=== PATIENT | female | born 1960 | race Caucasian/White ===

== ENCOUNTER 2020-10-03 08:50 | Outpatient (CLI) | payer SELFPAY ==
--- NOTE | 2020-10-03 08:55 | MR_ITS ---
WS: [id number] MRI BRAIN WITHOUT CONTRAST HISTORY: Tremor; anesthesia OF Skin; extrapyramidal AND MOVEMENT DISORDER COMPARISON: 04/14/2014 TECHNIQUE: Diffusion imaging, multiplanar T1, T2 and FLAIR imaging obtained. No evidence for acute infarct or hemorrhage. Greco-white matter differentiation is normal. No prior infarcts. There are several periventricular and deep white matter signal abnormalities which are similar to the prior study from 2013. The white matter lesion adjacent to the occipital horn of the RIGHT lateral ventricle is very minimally larger in size. Ventricles and extra-axial spaces are normal. No inferior displacement of cerebellar tonsils. The sella turcica and pituitary gland are unremarkabl e. Posterior fossa is also unremarkable. Dural venous sinuses and [place] of [place] demonstrate no abnormality on this unenhanced studies. Paranasal sinuses: Clear. Mastoid air cells: Normal. Calvarium and scalp: Intact. MR/MR head wo con* [id number] IMPRESSION: 1. No acute infarct. 2. Minimal chronic white matter changes surrounding the ventricles is very sim ilar in appearance to the prior study from 2013 without significant progression . 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 Not typical for demyelination .
== END 2020-10-03 08:51 | disposition home or self-care (01) ==
PROVIDERS: PCP Nurse Practitioner Family; Visit Provider Nurse Practitioner Family
DX: R20.0 Anesthesia of skin (principal); G25.9 Extrapyramidal and movement disorder, unspecified
CPT/HCPCS: 70551

== ENCOUNTER 2021-09-11 07:24 | Outpatient (RCR) | payer OTHER, SELFPAY | END 2021-10-08 23:59 | disposition home or self-care (01) | LOC: SPT 07:24 | PROVIDERS: PCP Nurse Practitioner Family; Visit Provider Nurse Practitioner Family | DX: S16.1XXA Strain of muscle, fascia and tendon at neck level, initial encounter (principal); V89.2XXA Person injured in unspecified motor-vehicle accident, traffic, initial encounter | CPT/HCPCS: 97110; 97161 ==

== ENCOUNTER 2021-10-25 10:41 | Outpatient (RCR) | payer OTHER, SELFPAY | END 2021-11-08 23:59 | disposition home or self-care (01) | LOC: SPT 10:41 | PROVIDERS: PCP Nurse Practitioner Family; Visit Provider Nurse Practitioner Family | DX: S16.1XXA Strain of muscle, fascia and tendon at neck level, initial encounter (principal); X58.XXXA Exposure to other specified factors, initial encounter; V89.2XXA Person injured in unspecified motor-vehicle accident, traffic, initial encounter | CPT/HCPCS: 97110 ==

== ENCOUNTER → 2021-11-29 00:01 | Outpatient (BNVA) | payer MEDICAID, SELFPAY | PROVIDERS: PCP Nurse Practitioner Family; Visit Provider Nurse Practitioner Family | DX: Z20.822 Contact with and (suspected) exposure to COVID-19 (principal) | CPT/HCPCS: 87635 ==

== ENCOUNTER 2022-10-07 15:29 | Emergency (ER) | payer MEDICAID, SELFPAY ==
[2022-10-07 15:44] VITALS: BP 136/88; PULSE 77; RESP 16; TEMP 37; O2SAT 98; BMI 33.2
--- NOTE | 2022-10-07 15:52 | ECG_ITS ---
[facility] Test Date: 2022-10-07 Pat Name: Beena Curtis Department: Room: Gender: Female [facility] Center Nurse: : 1960 Requested By: Jack Dorantes Order Number: [id number] Padma MD: Paulette Navas M.D. Measurements Intervals [place] Rate: 80 P: 54 [place]: 135 QRS: 18 QRSD: 79 T: 58 QT: 371 QTc: 430 Interpretive Statements SINUS RHYTHM Compared to ECG 09/25/2015 22:21:17 Ventricular premature complex(es) no longer present Electronically Signed On 10-07-2022 18:06:34 C D AREA SUPERVISOR by Paulette Navas M.D. [id number]
== END 2022-10-07 17:26 | disposition home or self-care (01) ==
PROVIDERS: Emergency Provider Family Medicine; PCP Nurse Practitioner Family
DX: Z53.21 Procedure and treatment not carried out due to patient leaving prior to being seen by health care provider (principal); R07.9 Chest pain, unspecified
CPT/HCPCS: 93005

== ENCOUNTER 2022-11-15 22:11 | Emergency (ER) | payer MEDICAID, SELFPAY ==
[2022-11-15 22:14] VITALS: BP 191/101; PULSE 94; RESP 22; TEMP 37.3; O2SAT 99; BMI 33.2
--- NOTE | 2022-11-15 22:30 | XRR_ITS ---
PROCEDURE INFORMATION: Exam: XR Chest Exam date and time: 11/15/2022 10:58 PM Age: 62 years old Clinical indication: Pain; Chest pressure; Additional info: Anxiety, chest pain TECHNIQUE: Imaging protocol: Radiologic exam of the chest. Views: 1 view. COMPARISON: No relevant prior studies available. FINDINGS: Lungs: Unremarkable. No consolidation. Pleural spaces: Unremarkable. No pleural effusion. No pneumothorax. Heart/Mediastinum: Unremarkable. No cardiomegaly. Bones/joints: Unremarkable. XR/XR chest 1V portable [id number] IMPRESSION: No acute findings.
--- NOTE | 2022-11-15 22:42 | W.ED.ANXIETY ---
HPI - Anxiety General: Chief Complaint: Anxiety Stated Complaint: anxiety, shaking Time Seen by Provider: 11/15/22 22:21 [facility] ED PFSH: Social History (Updated 11/29/21 @ 09:32 by Archana Leung NP) Smoking and tobacco status: former smoker Course Vital Signs: Vital signs: Vital Signs Temperature 99.2 F 11/15/22 22:14 Pulse Rate 94 11/15/22 22:14 Respiratory Rate 22 H 11/15/22 22:14 Blood Pressure 191/101 11/15/22 22:14 Pulse Oximetry 99 11/15/22 22:14 Oxygen Delivery Me thod 11/15/22 22:14 Discharge Plan Discharge Condition: Stable Prescriptions: No Action Unable to Assess Referrals: Ravinder,LEDY Davis [Primary Care Provider] - Coding Level of Care Code ED Janitorial Manager for Gurpreet Watkins
--- NOTE | 2022-11-15 22:43 | ECG_ITS ---
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 Measurements Intervals [place] Rate: 86 P: 56 [place]: 133 QRS: 32 QRSD: 89 T: 69 QT: 363 QTc: 436 Interpretive Statements SINUS RHYTHM Compared to ECG 10/07/2022 15:54:09 No significant changes Electronically Signed On 11-16-2022 20:01:44 PLACEMENT ASSISTANT by Nicole Moya M.D. [email or web address] memorial hospitalResonant Vibesguernsey memorial hospitalAkebia Therapeutics/store/OM/[id number]
[2022-11-15] MEDS: hyDROXYzine 25 mg Capsule 50 MG PO (23:02)
[2022-11-15 23:06] LABS: Basophils # 0.1 10^3/uL (0.0-0.1); Basophils % 1.1 %; Eosinophils # 0.2 10^3/uL (0.0-0.8); Eosinophils % 2.4 %; Hematocrit 45.3 % (37.0-47.0); Lymphocytes # 3.1 10^3/uL (0.8-4.8); Lymphocytes % 32.6 %; Mean Corpuscular HGB Conc 33.1 g/dL (30.0-36.0); Mean Corpuscular Hemoglobin 29.2 pg (28.0-34.0); Mean Corpuscular Volume 88.3 fl (81-99); Mean Platelet Volume 8.9 fL (7.4-10.4); Monocytes # 0.8 10^3/uL (0.2-0.9); Monocytes % 8.9 %; Neutrophils # 5.16 10^3/uL (1.8-7.7); Neutrophils % 54.8 %; Nucleated Red Blood Cells % 0 %; Platelet Count 346 10^3/cmm (130-400); Red Blood Count 5.13 10^6/uL (4.1-5.3); Red Cell Distribution Width 12.3 % (12.1-15.1); White Blood Count 9.4 10^3/uL (4.0-10.0)
--- NOTE | 2022-11-15 23:12 | ED_ITS ---
Documented by User: LEON Brody 11/16/22 01:20 HPI - General Adult General: Chief complaint: Anxiety Stated complaint: anxiety, shaking Time Seen by Provider: 11/15/22 22:21 History of Present Illness: Patient is a 62-year-old female that presents to the emergency department with complaints of anxiety, chest tightness, shortness of breath. Onset of symptoms yesterday after she underwent a stress test. She reports she got very anxious because she was not given the results of the stress test. Patient has been doing well at home until tonight. She became anxious and took 1/4 tablet of Xanax. Patient states her normal dose is half a tablet. Patient is in no acute distress and appears calm at this time Associated symptoms: Deny chest pain, confusion, dyspnea, headache(s), malaise, nausea, rash, palpitations or vomiting Review of Systems General: Reports: 10 or more systems reviewed and unremarkable except in HPI and below Const: Denies: fever(s), chills, change in appetite, change in weight, fatigue or malaise Eyes: Denies: change in vision, eye discomfort, eye discharge or eye redness ENMT: Denies: throat pain, enlarged tonsils, odynophagia, hoarseness, ear or mastoid pain, ear discharge, change in hearing, tinnitus, nasal discharge, nasal congestion, post nasal drip or sinus pain Card: Denies: chest pain, palpitations, irregular heart rhythm, edema, dyspnea on exertion, orthopnea or leg pain with exertion Resp: Denies: dyspnea, productive cough, non-productive cough, wheezing, stridor or chest congestion GI: Denies: abdominal pain, nausea, vomiting, dysphagia, diarrhea, constipation, bloating, GI cramping or hematochezia : Denies: flank pain, difficulty voiding, dysuria, urinary frequency, urinary urgency, urinary hesitancy, oliguria or hematuria Musc: Denies: neck pain, back pain, extremity pain, joint pain, joint swelling, joint redness, joint warmth or muscle weakness Skin/Breast: Denies: rash, pruritus, erythema, photosensitivity or new lesions Neuro: Denies: headache(s), numbness in extremities, weakness in extremities, sensory changes, lack of coordination, difficulty walking, frequent falls, dizziness, confusion, Slurred speech present, difficulty communicating thoughts, seizure-like activity or involuntary movements Endo: Denies: polyuria, polydipsia or tired all the time Jacoby/Lymph: Denies: easy bruising or easy bleeding PFSH ED PFSH: Social History (Updated 11/29/21 @ 09:32 by Archana Lenug NP) Smoking and tobacco status: former smoker Physical Exam Const: COMMON NORMALS: no acute distress, average body habitus, patient oriented x3, no limitations, healthy appearing, alert and well nourished GENERAL APPEARANCE: cooperative, comfortable and well developed; not in distress and not anxious HENMT: COMMON NORMALS: normocephalic, atraumatic, hearing grossly normal bilaterally, external ears normal, EAC's normal, TM's normal bilaterally, Normal external nose present and Normal nasal mucous membranes and turbinates present HEAD & SCALP: normal to inspection, normocephalic and atraumatic FACE & SINUS: normal facial exam and face symmetric NOSE: Normal external nose present, Normal nares present and Normal nasal mucous membranes and turbinates present GENERAL EAR: hearing not grossly impaired EXTERNAL EAR: Yes external ears normal and Yes no periauricular adenopathy EXTERNAL AUDITORY CANAL: EAC's normal TYMPANIC MEMBRANE: TM's normal bilaterally MOUTH: Normal oral and palatal mucosa present, lip normal, tongue normal and Normal salivary glands and ducts present THROAT: posterior oropharynx normal, tonsils normal and uvula midline Eye: COMMON NORMALS: Equal, round and reactive pupils present, EOMs intact bilaterally, conjunctivae normal, no scleral icterus and no papilledema GENERAL EYE: appearance normal, both eyes and all related structures ALIGNMENT: Yes alignment normal PERIORBITAL: periorbital findings normal EYELID: eyelids normal CONJUNCTIVA: Yes conjunctivae normal PUPIL: Yes Equal, round and reactive pupils present DIRECT OPHTHALMOSCOPY: Yes no papilledema Neck/C-Spine: COMMON NORMALS: full ROM, supple, no meningeal signs and no JVD GENERAL: Yes normal visual inspection CERVICAL SPINE: Yes cervical ROM normal Lymph: LYMPHATIC: no lymphadenopathy noted Chest: COMMONS NORMALS: normal inspection of the chest Breast/axilla inspection: Yes no chest deformity, asymmetry, normal contours, no nodules, masses, tenderness Resp: COMMON NORMALS: normal respiratory effort, No retractions, No use of accessory muscles and clear to auscultation bilaterally EFFORT & INSPECTION: Yes able to speak in complete sentences, Yes symmetric chest movement, No abn ormal respiratory pattern, No tachypneic and No respiratory distress AUSCULTATION: clear to auscultation bilaterally Cardio: COMMON NORMALS: no JVD, regular rate, regular rhythm and Peripheral pulses 2+ throughout RATE: regular rate RHYTHM: regular rhythm PERIPHERAL PULSES: Peripheral pulses 2+ throughout GI: COMMON NORMALS: Normal to inspection, nondistended, normoactive bowel mary nds present, Soft to palpation and non-tender INSPECTION: Yes normal to i nspection PALPATION: Yes Soft to palpation Extremity: COMMON NORMALS: normal to inspection, full ROM and capillary refill normal GENERAL: Yes normal exam except as noted Neuro: COMMON NORMALS: patient oriented x3 SENSORIUM/ORIENTATION: Yes alert MENINGEAL SIGNS: Yes no meningeal signs Psych: COMMON NORMALS: mental status grossly normal, Normal thought process present, cooperative, normal affect, speech normal and activity/motor behavior normal SPEECH: Yes normal speech THOUGHT PROCESS: Normal thought process present Course Vital Signs: Vital signs: Vital Signs Temperature 99.2 F 11/15/22 22:14 Pulse Rate 94 11/15/22 22:14 Respiratory Rate 22 H 11/15/22 22:14 Blood Pressure 191/101 11/15/22 22:14 Pulse Oximetry 99 11/15/22 22:14 Oxygen Delivery Me thod 11/15/22 22:14 MDM - General Adult Medical Decision Making Patient is a 62-year-old female that presents with anxiety. Differential diagnoses include anxiety, depression, cardiac event, respiratory event Here in the emergency department we discussed her symptoms and her current management at home. Patient's anxiety is managed by primary care but patient is not taking medications as prescribed Patient denies any actual chest pain but does report several episodes of discomfort. She is not acutely short of breath but she describes heaviness in her breathing. Here in the emergency department she is undergone med for anxiety which include Vistaril; she did not want to take the Librium that I prescribed Patient also underwent EKG, chest x-ray, laboratory studies. Chest x-ray was unremarkable, EKG was completed at 2243. It reveals sinus rhythm with a ventricular rate of 86 beats a minute. QTc is 407. CBC and CMP were unremarkable. Troponin was 6. Patient did respond positively with the Vistaril. I will discharge her home with several days worth to help with anxiety. She is to contact her primary care provider to discuss her anxiety and her anxiolytics. Patient also needs to follow-up with the retail greeter at [facility] to further discuss stress test. At this time I think the patient is safe to discharge home. She is to return to the emergency department for new concerning or worsening symptoms. Questions sought and answered and she is agreeable with this plan Lab Data 11/15/22 23:00 11/15/22 23:00 Radiology Impressions Chest X-Ray 11/15/22 22:30 IMPRESSION: No acute findings. Laboratory Results WBC 9.4 10^3/uL (4.0-10.0) 11/15/22 23: RBC 5.13 10^6/uL (4.1-5.3) 11/15/22 23: Hgb 15.0 g/dL (11.5-15.3) 11/15/22 23: Hct 45.3 % (37.0-47.0) 11/15/22 23: MCV 88.3 fl (81-99) 11/15/22 23: MCH 29.2 pg (28.0-34.0) 11/15/22 23: MCHC 33.1 g/dL (30.0-36.0) 11/15/22 23: RDW 12.3 % (12.1-15.1) 11/15/22 23: Plt Count 346 10^3/cmm (130-400) 11/15/22 23: MPV 8.9 fL (7.4-10.4) 11/15/22 23: Neut % (Auto) 54.8 % 11/15/22 23: Lymph % (Auto) 32.6 % 11/15/22 23: [place] % (Auto) 8.9 % 11/15/22 23: Eos % (Auto) 2.4 % 11/15/22 23: Baso % (Auto) 1.1 % 11/15/22 23: Neut # (Auto) 5.16 10^3/uL (1.8-7.7) 11/15/22 23: Lymph # (Auto) 3.1 10^3/uL (0.8-4.8) 11/15/22 23:00 [place] # (Auto) 0.8 10^3/uL (0.2-0.9) 11/15/22 23:00 Eos # (Auto) 0.2 10^3/uL (0.0-0.8) 11/15/22 23:00 Baso # (Auto) 0.1 10^3/uL (0.0-0.1) 11/15/22 23:00 Nucleated RBC % (auto) 0 % 11/15/22 23:00 Nucleated RBCs # 0.0 /100WBC 11/15/22 23:00 Sodium 141 mmol/L (136-145) 11/15/22 23:00 Potassium 3.7 mmol/L (3.5-5.1) 11/15/22 23:00 Chloride 102 mmol/L (98-107) 11/15/22 23:00 Carbon Dioxide 26 mmol/L (22-29) 11/15/22 23:00 Anion Gap 16.7 (5-19) 11/15/22 23:00 BUN 16 mg/dL (8-23) 11/15/22 23:00 Creatinine 0.8 mg/dL (0.5-0.9) 11/15/22 23:00 GFR Calculation 72.9 mL/min (90-130) L 11/15/22 23:00 Glucose 139 mg/dL (65-115) H 11/15/22 23:00 Calculated Osmolality 295 mOsm/kg (285-295) 11/15/22 23:00 Calcium 9.3 mg/dL (8.5-10.5) 11/15/22 23:00 Total Bilirubin 0.4 mg/dL (0.15-1.2) 11/15/22 23:00 AST 14 U/L (0-32) 11/15/22 23:00 ALT 16 U/L (0-33) 11/15/22 23:00 Alkaline Phosphatase 67 U/L (35-105) 11/15/22 23:00 Troponin T Baseline 6 ng/L (0-10) 11/15/22 23:00 Total Protein 7.7 g/dL (6.6-8.7) 11/15/22 23:00 Albumin 4.6 g/dL (3.5-5.2) 11/15/22 23:00 Globulin 3.1 g/dL (1.3-4.6) 11/15/22 23:00 Discharge Plan Discharge Patient Disposition: Home Clinical Impression: Acute anxiety Condition: Stable Prescriptions: New hydroxyzine HCl 50 mg tablet 50 mg PO BID PRN (Reason: anxiety) Qty: 10 0RF Discharge Orders: Discharge ED (Routine); Ordered 11/16/22 Ordered By: Antonietta Tracy Referrals: Susan Castellon FNP [Primary Care Provider] - Discharge Diet: Advance as tolerated Discharge Activity: Resume usual activity Patient Instructions: Relaxation and Meditation (ED), Anxiety (ED) Activity Restrictions/Additional Instructions: I have provided you hydroxyzine 50 mg tablets. You can take 1/2 to 1 tablet twice a day as needed for anxiety. Find ways of reducing your stress and anxiety. Trial meditation or anxiety Focus on your breathing Contact your cardiology team at [facility] to discuss stress test findings Contact your primary care team to discuss your anxiety medications Return to the emergency department for new, concerning, worsening symptoms Coding Level of Care Code ED Credit Control Administrator for Chg Fwd Exam Comprehensive Documented by User: Uriel Krishnamurthy DO 11/16/22 07:07 HPI - General Adult General: Chief complaint: Anxiety Stated complaint: anxiety, shaking Time Seen by Provider: 11/15/22 22:21 [facility] ED PFS: Social History (Updated 11/29/21 @ 09:32 by Archana Leung NP) Smoking and tobacco status: former smoker Course Vital Signs: Vital signs: Vital Signs Temperature 99.2 F 11/15/22 22:14 Pulse Rate 94 11/15/22 22:14 Respiratory Rate 22 H 11/15/22 22:14 Blood Pressure 191/101 11/15/22 22:14 Pulse Oximetry 99 11/15/22 22:14 Oxygen Delivery Me thod 11/15/22 22:14 MDM - General Adult Medical Decision Making Patient is a 62-year-old female that presents with anxiety. Differential diagnoses include anxiety, depression, cardiac event, respiratory event Here in the emergency department we discussed her symptoms and her current management at home. Patient's anxiety is managed by primary care but patient is not taking medications as prescribed Patient denies any actual chest pain but does report several episodes of discomfort. She is not acutely short of breath but she describes heaviness in her breathing. Here in the emergency department she is undergone med for anxiety which include Vistaril; she did not want to take the Librium that I prescribed Patient also underwent EKG, chest x-ray, laboratory studies. Chest x-ray was unremarkable, EKG was completed at 2243. It reveals sinus rhythm with a ventricular rate of 86 beats a minute. QTc is 407. CBC and CMP were unremarkable. Troponin was 6. Patient did respond positively with the Vistaril. I will discharge her home with several days worth to help with anxiety. She is to contact her primary care provider to discuss her anxiety and her anxiolytics. Patient also needs to follow-up with the retail greeter at [facility] to further discuss stress test. At this time I think the patient is safe to discharge home. She is to return to the emergency department for new concerning or worsening symptoms. Questions sought and answered and she is agreeable with this plan Chart reviewed and patient discussed with midlevel. Agree with assessment and plan. Lab Data 11/15/22 23:00 11/15/22 23:00 Radiology Impressions Chest X-Ray 11/15/22 22:30 IMPRESSION: No acute findings. Laboratory Results WBC 9.4 10^3/uL (4.0-10.0) 11/15/22 23: RBC 5.13 10^6/uL (4.1-5.3) 11/15/22 23:00 Hgb 15.0 g/dL (11.5-15.3) 11/15/22 23: Hct 45.3 % (37.0-47.0) 11/15/22 23:00 MCV 88.3 fl (81-99) 11/15/22 23: MCH 29.2 pg (28.0-34.0) 11/15/22 23: MCHC 33.1 g/dL (30.0-36.0) 11/15/22 23: RDW 12.3 % (12.1-15.1) 11/15/22 23:00 Plt Count 346 10^3/cmm (130-400) 11/15/22 23:00 MPV 8.9 fL (7.4-10.4) 11/15/22 23:00 Neut % (Auto) 54.8 % 11/15/22 23:00 Lymph % (Auto) 32.6 % 11/15/22 23:00 [place] % (Auto) 8.9 % 11/15/22 23:00 Eos % (Auto) 2.4 % 11/15/22 23:00 Baso % (Auto) 1.1 % 11/15/22 23:00 Neut # (Auto) 5.16 10^3/uL (1.8-7.7) 11/15/22 23:00 Lymph # (Auto) 3.1 10^3/uL (0.8-4.8) 11/15/22 23:00 [place] # (Auto) 0.8 10^3/uL (0.2-0.9) 11/15/22 23:00 Eos # (Auto) 0.2 10^3/uL (0.0-0.8) 11/15/22 23:00 Baso # (Auto) 0.1 10^3/uL (0.0-0.1) 11/15/22 23:00 Nucleated RBC % (auto) 0 % 11/15/22 23: Nucleated RBCs # 0.0 /100WBC 11/15/22 23:00 Sodium 141 mmol/L (136-145) 11/15/22 23:00 Potassium 3.7 mmol/L (3.5-5.1) 11/15/22 23:00 Chloride 102 mmol/L (98-107) 11/15/22 23:00 Carbon Dioxide 26 mmol/L (22-29) 11/15/22 23:00 Anion Gap 16.7 (5-19) 11/15/22 23:00 BUN 16 mg/dL (8-23) 11/15/22 23:00 Creatinine 0.8 mg/dL (0.5-0.9) 11/15/22 23:00 GFR Calculation 72.9 mL/min (90-130) L 11/15/22 23:00 Glucose 139 mg/dL (65-115) H 11/15/22 23:00 Calculated Osmolality 295 mOsm/kg (285-295) 11/15/22 23:00 Calcium 9.3 mg/dL (8.5-10.5) 11/15/22 23:00 Total Bilirubin 0.4 mg/dL (0.15-1.2) 11/15/22 23:00 AST 14 U/L (0-32) 11/15/22 23:00 ALT 16 U/L (0-33) 11/15/22 23:00 Alkaline Phosphatase 67 U/L (35-105) 11/15/22 23:00 Troponin T Baseline 6 ng/L (0-10) 11/15/22 23:00 Total Protein 7.7 g/dL (6.6-8.7) 11/15/22 23:00 Albumin 4.6 g/dL (3.5-5.2) 11/15/22 23:00 Globulin 3.1 g/dL (1.3-4.6) 11/15/22 23:00 Discharge Plan Discharge Patient Disposition: Home Clinical Impression: Acute anxiety Condition: Stable Prescriptions: New hydroxyzine HCl 50 mg tablet 50 mg PO BID PRN (Reason: anxiety) Qty: 10 0RF Discharge Orders: Discharge ED (Routine); Ordered 11/16/22 Ordered By: Antonietta Tracy Referrals: Susan Castellon FNP [Primary Care Provider] - Discharge Diet: Advance as tolerated Discharge Activity: Resume usual activity Patient Instructions: Relaxation and Meditation (ED), Anxiety (ED) Activity Restrictions/Additional Instructions: I have provided you hydroxyzine 50 mg tablets. You can take 1/2 to 1 tablet twice a day as needed for anxiety. Find ways of reducing your stress and anxiety. Trial meditation or anxiety Focus on your breathing Contact your cardiology team at [facility] to discuss stress test findings Contact your primary care team to discuss your anxiety medications Return to the emergency department for new, concerning, worsening symptoms Coding Level of Care Code ED Credit Control Administrator for Gurpreet Fwshyam Exam Comprehensive
[2022-11-15 23:30] LABS: Alanine Aminotransferase 16 U/L (0-33); Albumin Level 4.6 g/dL (3.5-5.2); Alkaline Phosphatase 67 U/L (35-105); Anion Gap 16.7 (5-19); Aspartate Amino Transferase 14 U/L (0-32); Blood Urea Nitrogen 16 mg/dL (8-23); Calcium 9.3 mg/dL (8.5-10.5); Carbon Dioxide 26 mmol/L (22-29); Chloride 102 mmol/L (98-107); Creatinine Clr Calc Pharmacy 67.7847; Globulin 3.1 g/dL (1.3-4.6); Glomerular Filtration Rate 72.9 mL/min (90-130); Glucose 139 mg/dL (65-115); Osmolality Calculated 295 mOsm/kg (285-295); Potassium 3.7 mmol/L (3.5-5.1); Sodium 141 mmol/L (136-145); Total Bilirubin 0.4 mg/dL (0.15-1.2); Total Protein 7.7 g/dL (6.6-8.7)
[2022-11-15 23:31] LABS: Troponin(5th) Baseline 6 ng/L (0-10)
== END 2022-11-16 01:04 | disposition home or self-care (01) ==
PROVIDERS: Emergency Provider Nurse Practitioner; PCP Nurse Practitioner Family
DX: F41.9 Anxiety disorder, unspecified (principal); Z87.891 Personal history of nicotine dependence
CPT/HCPCS: 71045; 80053; 84484; 85025; 93005; 99285

== ENCOUNTER 2023-01-28 09:22 | Outpatient (CLI) | payer MEDICAID, SELFPAY ==
--- NOTE | 2023-01-28 | USCV_ITS ---
Kacie Curtiserine Age: 62 Gender: F : 1960 Exam Date: 01/28/2023 09:48 Ordering Phys: Susan Castellon Technologist: CT Exam Location: [facility] [place] Indication: neck pain Risk Factors: Previous Vascular Surgery: Right Brachial BP: / Left Brachial BP: / Right Left Velocity (cm/s) Spectral Plaque Velocity (cm/s) Spectral Plaque Syst/Diast Broadening Syst/Diast Broadening 84.90/ 26.50 Prox CCA 103.90/ 23.70 76.90/ 17.10 Mid CCA 94.00 / 30.90 70.70/ 17.20 Distal CCA 89.40 / 30.90 52.90/ 13.90 Prox ICA 72.20 / 26.40 60.40/ 19.20 Mid ICA 65.30 / 22.40 67.00/ 21.70 Distal ICA 75.10 / 29.20 81.90 ECA 142.10 0.79 ICA/CCA 0.72 Antegrade Vertebral Antegrade 48.80/ 11.50 cm/s 24.20/ 7.30 cm/s Bi Subclavian Bi 120.3 102.0 0 0 FINDINGS intimal thickening in left prx ica without stenosis at this time CONCLUSIONS Right ICA stenosis <50%. Left ICA stenosis <50%. Mild atheromatous plaque left carotid bulb/ICA. Normal antegrade Doppler flow noted in the right vertebral artery. Normal antegrade Doppler flow noted in the left vertebral artery. Lopez Calzada MD (Electronically Signed) Final Date: 28 January 2023 17:58 S
== END 2023-01-28 09:23 | disposition home or self-care (01) ==
LOC: RAD 09:24
PROVIDERS: PCP Nurse Practitioner Family; Visit Provider Nurse Practitioner Family
DX: M54.2 Cervicalgia (principal); I65.23 Occlusion and stenosis of bilateral carotid arteries
CPT/HCPCS: 93880

== ENCOUNTER 2023-09-01 11:06 | Emergency (ER) | payer MEDICAID, SELFPAY ==
--- NOTE | 2023-09-01 11:08 | XR_ITS ---
WS: [id number] Exam: XR chest 1V portable [id number] Date/Time of Exam: 09/01/2023 11:20 AM Reason For Exam: cp Comparison 11/15/2022. Lungs are clear and fully expanded. Normal cardiomediastinal silhouette and regional bony elements. S urgical clips along the RIGHT axilla. IMPRESSION: 1. No acute cardiopulmonary finding.
--- NOTE | 2023-09-01 11:08 | ECG_ITS ---
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 Measurements Intervals [place] Rate: 83 P: 58 NE: 140 QRS: 16 QRSD: 83 T: 64 QT: 382 QTc: 449 Interpretive Statements SINUS RHYTHM NONSPECIFIC T-WAVE ABNORMALITY Compared to ECG 11/15/2022 22:43:11 T-wave abnormality now present Electronically Signed On 09-01-2023 11:19:37 CDT by Dirk Reyes M.D. [id number]
[2023-09-01 11:10] VITALS: BP 166/103; PULSE 83; RESP 17; TEMP 37; O2SAT 99; BMI 33.0
--- NOTE | 2023-09-01 11:14 | ED_ITS ---
HPI - Chest Pain General: Chief Complaint: Chest Pain Stated Complaint: chest pain Time Seen by Provider: 09/01/23 11:14 Source: patient Mode of arrival: ambulatory History of Present Illness: 63-year-old female who presents to the emergency room with complaint of chest pain. This been going on for several months nearly a year. She has had previous evaluation including a stress test done at [facility] about 5 to 6 months ago that was negative. She has previously had her gallbladder out. She has not noticed anything that exacerbates or relieves her symptoms no fever sweats chills no productive cough no vomiting no diarrhea no acholic stools. She has some neck and back pain that she has seen orthopedic spine surgery for. MD complaint: chest pain Onset (ago): month(s) Prior episodes: Yes Pain location: substernal Pain radiation: none Severity: mild Relieving factors: nothing Exacerbating factors: nothing Associated symptoms: Deny abdominal pain, diaphoresis, dyspnea, fever(s), leg edema, nausea, palpitations, sense of impending doom, syncope or vomiting Review of Systems Const: Denies: fever(s), chills or diaphoresis Card: Denies: chest pain, palpitations or syncope Resp: Denies: dyspnea GI: Denies: abdominal pain, nausea or vomiting : Denies: dysuria, urinary frequency or urinary urgency Musc: Denies: neck pain or back pain Skin/Breast: Denies: rash PFSH ED PFSH: Social History Smoking and tobacco/nicotine status: former use of tobacco/nicotine Physical Exam Const: COMMON NORMALS: no acute distress GENERAL APPEARANCE: cooperative and comfortable ORIENTATION/CONSCIOUSNESS: Yes awake, Yes oriented to person, Yes oriented to place and Yes oriented to time HENMT: COMMON NORMALS: normocephalic, atraumatic and hearing grossly normal bilaterally HEAD & SCALP: normocephalic and atraumatic Resp: COMMON NORMALS: normal respiratory effort, No retractions, No use of accessory muscles and clear to auscultation bilaterally AUSCULTATION: clear to auscultation bilaterally Cardio: COMMON NORMALS: regular rate, regular rhythm and No murmurs present (Cardio) RATE: regular rate RHYTHM: regular rhythm GI: COMMON NORMALS: Soft to palpation and No hepatosplenomegaly present AUSCULTATION: Yes normoactive bowel sounds PALPATION: Yes Soft to palpation, No Tenderness to palpation present (GI), No Guarding due to palpation present (GI) and Yes No hepatosplenomegaly present Extremity: COMMON NORMALS: normal to inspection, capillary refill normal, no clubbing, cyanosis or edema, no calf tenderness and no pedal edema Neuro: SENSORIUM/ORIENTATION: Yes oriented to person, Yes oriented to place and Yes oriented to time Skin: COMMON NORMALS: no rashes or lesions noted GENERAL SKIN EXAM: no denice hes or lesions noted Course Vital Signs: Vital signs: Vital Signs Temperature 98.6 F 09/01/23 11:10 Pulse Rate 79 09/01/23 13:00 Respiratory Rate 19 H 09/01/23 13:00 Blood Pressure 164/84 09/01/23 13:00 Pulse Oximetry 98 09/01/23 13:00 Oxygen Delivery Me thod Room Air 09/01/23 11:10 MDM - Chest Pain Medical Decision Making Labs and imaging unremarkable. No EKG acute ST segment changes. Cardiac enzymes negative. Patient has had symptoms for months has had cardiac testing which has been negative troponin done here was undetectable. Discharge patient home started on pantoprazole encouraged her to follow-up with her primary care return if has further problems. Medical Records I reviewed the patient's medical records. Lab Data I reviewed the patient's lab results. 09/01/23 11:09/01/23 11:23 Laboratory Results WBC 7.48 10^3/uL (3.29-11.43) 09/01/23 11: RBC 5.19 10^6/uL (3.85-5.65) 09/01/23 11:23 Hgb 15.50 g/dL (11.27-16.99) 09/01/23 11:23 Hct 45.5 % (36-47) 09/01/23 11:23 MCV 87.7 fl (85-98) 09/01/23 11: MCH 29.9 pg (27-33) 09/01/23 11: MCHC 34.1 g/dL (30-55) 09/01/23 11: RDW 12.1 % (12.1-15.1) 09/01/23 11: Plt Count 340 10^3/cmm (157-399) 09/01/23 11: MPV 8.7 fL (7.4-10.4) 09/01/23 11:23 Neut % (Auto) 59.6 % 09/01/23 11:23 Lymph % (Auto) 29.0 % 09/01/23 11:23 [place] % (Auto) 8.3 % 09/01/23 11:23 Eos % (Auto) 1.3 % 09/01/23 11:23 Baso % (Auto) 1.5 % 09/01/23 11:23 Neut # (Auto) 4.46 10^3/uL (1.8-7.7) 09/01/23 11:23 Lymph # (Auto) 2.2 10^3/uL (0.8-4.8) 09/01/23 11:23 [place] # (Auto) 0.6 10^3/uL (0.2-0.9) 09/01/23 11:23 Eos # (Auto) 0.1 10^3/uL (0.0-0.8) 09/01/23 11:23 Baso # (Auto) 0.1 10^3/uL (0.0-0.1) 09/01/23 11: Nucleated RBC % (auto) 0 % 09/01/23 11: Nucleated RBCs # 0.0 /100WBC 09/01/23 11:23 Sodium 138 mmol/L (136-145) 09/01/23 11:23 Potassium 4.0 mmol/L (3.5-5.1) 09/01/23 11:23 Chloride 102 mmol/L (98-107) 09/01/23 11:23 Carbon Dioxide 27 mmol/L (22-29) 09/01/23 11:23 Anion Gap 13.0 (5-19) 09/01/23 11:23 BUN 20 mg/dL (8-23) 09/01/23 11:23 Creatinine 0.7 mg/dL (0.5-0.9) 09/01/23 11:23 GFR Calculation 84.8 mL/min (90-130) L 09/01/23 11:23 Glucose 119 mg/dL (65-115) H 09/01/23 11:23 Calculated Osmolality 290 mOsm/kg (285-295) 09/01/23 11:23 Calcium 9.3 mg/dL (8.5-10.5) 09/01/23 11:23 Total Bilirubin 0.9 mg/dL (0.15-1.2) 09/01/23 11:23 AST 16 U/L (0-32) 09/01/23 11:23 ALT 14 U/L (0-33) 09/01/23 11:23 Alkaline Phosphatase 63 U/L (35-105) 09/01/23 11:23 Troponin T Baseline < 6 ng/L (0-10) 09/01/23 11:23 Total Protein 7.0 g/dL (6.6-8.7) 09/01/23 11:23 Albumin 4.7 g/dL (3.5-5.2) 09/01/23 11:23 Globulin 2.3 g/dL (1.3-4.6) 09/01/23 11:23 Lipase 25 U/L (13-60) 09/01/23 11:23 All radiology interpretation(s) finalized by discharge Discharge Plan Discharge Patient Disposition: Home Clinical Impression: Chest pain due to gastrointestinal reflux disease, Atypical chest pain Condition: Stable Prescriptions: New pantoprazole 40 mg tablet,delayed release (DR/EC) 40 mg PO DAILY Qty: 30 0RF No Action hydroxyzine HCl 50 mg tablet 50 mg PO BID PRN (Reason: anxiety) Qty: 10 0RF Discharge Orders: Discharge ED (Routine); Ordered 09/01/23 Ordered By: Uriel Krishnamurthy Referrals: Castellon,DEMARCO DavisP [Primary Care Provider] - Discharge Diet: As Directed Discharge Activity: Increase activity as tolerated Patient Instructions: Diet for Stomach Ulcers and Gastritis (ED), Opioid Safety, Pain Management Activity Restrictions/Additional Instructions: Follow-up with primary care doctor within the next 7 to 10 days return if you have further problems. Coding Level of Care Code ED Pharmacy Laboratory Technician for Gurpreet Watkins
[2023-09-01 11:33] LABS: Basophils # 0.1 10^3/uL (0.0-0.1); Basophils % 1.5 %; Eosinophils # 0.1 10^3/uL (0.0-0.8); Eosinophils % 1.3 %; Hematocrit 45.5 % (36-47); Lymphocytes # 2.2 10^3/uL (0.8-4.8); Mean Corpuscular HGB Conc 34.1 g/dL (30-55); Mean Corpuscular Hemoglobin 29.9 pg (27-33); Mean Corpuscular Volume 87.7 fl (85-98); Mean Platelet Volume 8.7 fL (7.4-10.4); Monocytes # 0.6 10^3/uL (0.2-0.9); Monocytes % 8.3 %; Neutrophils # 4.46 10^3/uL (1.8-7.7); Neutrophils % 59.6 %; Nucleated Red Blood Cells % 0 %; Platelet Count 340 10^3/cmm (157-399); Red Blood Count 5.19 10^6/uL (3.85-5.65); Red Cell Distribution Width 12.1 % (12.1-15.1); White Blood Count 7.48 10^3/uL (3.29-11.43)
[2023-09-01 11:37] VITALS: BP 170/99; PULSE 84; RESP 17; O2SAT 97
[2023-09-01 11:49] LABS: Alanine Aminotransferase 14 U/L (0-33); Albumin Level 4.7 g/dL (3.5-5.2); Alkaline Phosphatase 63 U/L (35-105); Aspartate Amino Transferase 16 U/L (0-32); Blood Urea Nitrogen 20 mg/dL (8-23); Calcium 9.3 mg/dL (8.5-10.5); Carbon Dioxide 27 mmol/L (22-29); Chloride 102 mmol/L (98-107); Globulin 2.3 g/dL (1.3-4.6); Glomerular Filtration Rate 84.8 mL/min (90-130); Glucose 119 mg/dL (65-115); Lipase 25 U/L (13-60); Osmolality Calculated 290 mOsm/kg (285-295); Sodium 138 mmol/L (136-145); Total Bilirubin 0.9 mg/dL (0.15-1.2)
[2023-09-01 11:52] LABS: Troponin(5th) Baseline < 6 ng/L (0-10)
[2023-09-01 12:00] VITALS: PULSE 80; RESP 19; O2SAT 97
[2023-09-01 12:26] VITALS: BP 170/108
[2023-09-01 12:30] VITALS: BP 170/108; PULSE 78; RESP 19; O2SAT 98
[2023-09-01 13:00] VITALS: BP 164/84; PULSE 79; RESP 19; O2SAT 98
== END 2023-09-01 13:13 | disposition home or self-care (01) ==
PROVIDERS: Emergency Medicine; Emergency Provider Family Medicine; PCP Nurse Practitioner Family
DX: K21.9 Gastro-esophageal reflux disease without esophagitis (principal); R07.89 Other chest pain; Z87.891 Personal history of nicotine dependence
CPT/HCPCS: 71045; 80053; 83690; 84484; 85025; 93005; 99285

== ENCOUNTER 2023-12-04 10:40 | Emergency (ER) | payer MEDICAID, SELFPAY ==
[2023-12-04 10:44] VITALS: BP 145/97; PULSE 90; RESP 15; O2SAT 96; BMI 27.6
--- NOTE | 2023-12-04 11:04 | ED_ITS ---
HPI - Extremity Injury (Upper) General: Chief Complaint: Extremity Injury, Upper Stated Complaint: right arm pain Time Seen by Provider: 12/04/23 10:43 Source: patient Mode of arrival: ambulatory Limitations: no limitations History of Present Illness: Patient is a 63-year-old female presents to ED today with complaint of right shoulder pain. Patient states 3 months ago she was going down a flight of stairs when she felt like she was about to fall. Patient states she reached out and grabbed the stair rail with her right arm and caught herself but reports feeling pain in the R arm/shoulder immediately after. She states she initially thought pain would improve on its own but it has not. She has followed up with her PCP who has ordered a MRI of the shoulder and that is scheduled in just a few days on 12/10. Patient here today complaining of worsening pain. She has not noticed any numbness, tingling, loss of sensation to the arm. She has not noticed any swelling, color, temperature changes. Pain is made worse with range of motion. MD complaint: injury to: right and shoulder Onset (ago): month(s) Other Extremity Injury: Right: shoulder Other injuries: none Place: home Severity: severe Relieving factors: none Exacerbating factors: movement of extremity Context: fall (pulling injury) Associated symptoms: Denies neck pain or weakness in extremities Review of Systems Const: Denies: fever(s), chills, body aches, fatigue or malaise Card: Denies: chest pain Resp: Denies: dyspnea Musc: Reports: joint pain (R shoulder) and limited range of motion (R shoulder); Denies: neck pain, back pain, extremity pain, extremity swelling, joint swelling, joint redness or joint warmth Skin/Breast: Denies: rash Neuro: Denies: headache(s), numbness in extremities, weakness in extremities or sensory changes PFS ED PFSH: Social History Smoking and tobacco/nicotine status: former use of tobacco/nicotine Physical Exam Const: COMMON NORMALS: no acute distress, average body habitus, patient oriented x3, no limitations, healthy appearing, alert and well nourished Neck/C-Spine: COMMON NORMALS: full ROM GENERAL: Yes normal visual inspection CERVICAL SPINE: No Cervical spine tenderness, No Paracervical muscle tenderness and No Trapezius muscle tenderness Resp: COMMON NORMALS: normal respiratory effort Extremity: COMMON NORMALS: capillary refill normal, no clubbing, cyanosis or edema and no pedal edema GENERAL: Yes normal exam except as noted RIGHT UPPER EXTREMITY: Yes shoulder joint Right shoulder: Yes Right shoulder joint inspection exam (normal gross inspection; no bony or muscular deformities noted), Yes Right shoulder joint ROM exam (significantly limited by discomfort making specialized testing difficult) and Yes Right shoulder joint neurovascular exam (normal) OTHER: Patient has tenderness throughout the posterior aspect of the right shoulder joint and into her glenohumeral joint down to about her mid humerus. She has significantly decreased range of motion making any form of specialized examination difficult. She does have a normal Speed's test but Yergason's is positive. There is no dislocation by palpation present. Extremity is NV intact. Neuro: COMMON NORMALS: patient oriented x3, moves all extremities, no focal motor deficits and no sensory deficits noted SENSORIUM/ORIENTATION: Yes alert Course Vital Signs: Vital signs: Vital Signs Pulse Rate 90 12/04/23 10:44 Respiratory Rate 15 12/04/23 10:44 Blood Pressure 145/97 12/04/23 10:44 Pulse Oximetry 96 12/04/23 10:44 Oxygen Delivery Me thod Room Air 12/04/23 10:44 MDM - Extremity Injury (Upper) Medical Decision Making Patient here for right shoulder pain x 3 months. She has an MRI already scheduled for 12/10. Recommend she keep this appointment for further evaluation. She can then follow-up with primary care to discuss results and possible referral to orthopedics/physical therapy. She was offered pain medications but declined stating she has allergies to all of them. She does have a prescription for muscle relaxers. Will put her on steroids and anti-inflammatories. Medical Records I reviewed the patient's medical records. No radiology studies performed this visit Discharge Plan Discharge Patient Disposition: Home Clinical Impression: Chronic pain in right shoulder Condition: Stable Prescriptions: New dexamethasone 6 mg tablet 6 mg PO DAILY Qty: 6 0RF diclofenac sodium 50 mg tablet,delayed release (DR/EC) 50 mg PO Q12H PRN (Reason: pain) Qty: 20 0RF No Action pantoprazole 40 mg tablet,delayed release (DR/EC) 40 mg PO DAILY Qty: 30 0RF hydroxyzine HCl 50 mg tablet 50 mg PO BID PRN (Reason: anxiety) Qty: 10 0RF Discharge Orders: Discharge ED (Routine); Ordered 12/04/23 Ordered By: Rina Small Referrals: Susan Castellon FNP [Primary Care Provider] - Activity Restrictions/Additional Instructions: As we discussed continue current plan for MRI imaging on 12/10 for further evaluation of your right shoulder pain. You can then continue to follow-up with your primary care provider to discuss results and plan following this. Coding Level of Care Code ED Charcoal Unloader for Gurpreet Watkins
== END 2023-12-04 11:18 | disposition home or self-care (01) ==
PROVIDERS: Emergency Provider Physician Assistant; PCP Nurse Practitioner Family
DX: G89.29 Other chronic pain (principal); M25.511 Pain in right shoulder; Z87.891 Personal history of nicotine dependence
CPT/HCPCS: 99283

== ENCOUNTER 2023-12-10 08:21 | Outpatient (CLI) | payer MEDICAID, SELFPAY ==
--- NOTE | 2023-12-10 08:27 | MR_ITS ---
WS: [id number] MRI RIGHT SHOULDER NONCONTRAST TECHNIQUE: Sagittal T2, coronal T1, T2 and proton density imaging. Axial gradient PDE imaging. CLINICAL INFORMATION: STIFFNESS/PAIN IN R SHOULDER COMPARISON: None. FINDINGS: Moderate degenerative arthritis AC joint with mild edema. Mild subacromial-subdeltoid fluid. Slight s ubacromial spurring. Impingement distal supraspinatus. Calcific tendinopathy distal supraspinatus. Ti ny tear at the distal insertion. Normal infraspinatus. Normal teres minor. Normal subscapularis. Normal biceps tendon in the bicipital groove. Moderate degenerative narrowing at the glenohumeral articulation. Degenerative fraying of th e glenoid labrum. Intra-articular biceps tendon appears intact. IMPRESSION: 1. Moderate degenerative arthritis AC joint with mild edema and subacromial spurring. Mild subacromi al subdeltoid fluid. 2. Calcific tendinopathy distal supraspinatus with a tiny insertional tear. Chronic thinning of the supraspinatus. 3. Rotator cuff is otherwise intact. 4. Biceps tendon intact within the bicipital groove. 5. No other acute findings.
== END 2023-12-10 08:22 | disposition home or self-care (01) ==
LOC: RAD 08:22
PROVIDERS: PCP Nurse Practitioner Family; Visit Provider Nurse Practitioner Family
DX: M19.011 Primary osteoarthritis, right shoulder (principal); M75.31 Calcific tendinitis of right shoulder; M75.101 Unspecified rotator cuff tear or rupture of right shoulder, not specified as traumatic
CPT/HCPCS: 73221

== ENCOUNTER → 2025-07-21 09:19 | Outpatient (BNVA) | payer MEDICAID, SELFPAY | PROVIDERS: PCP Family Medicine; Visit Provider Internal Medicine Cardiovascular Disease | DX: R07.9 Chest pain, unspecified (principal); R94.31 Abnormal electrocardiogram [ECG] [EKG] | CPT/HCPCS: 93005 ==

== ENCOUNTER → 2025-08-10 14:07 | Outpatient (BNVA) | payer MEDICAID, SELFPAY | PROVIDERS: PCP Family Medicine; Visit Provider Family Medicine | DX: M25.561 Pain in right knee (principal); M25.562 Pain in left knee | CPT/HCPCS: 80053; 85025; 85651; 86038; 86140; 86200; 86431 ==

== ENCOUNTER 2025-08-14 10:06 | Outpatient (CLI) | payer MEDICAID, SELFPAY ==
--- NOTE | 2025-08-14 10:13 | XR_ITS ---
WS: [id number] Sacrum and coccyx, AP and lateral views, 08/14/2025 Clinical Data: coccyx pain Comparison: None. Findings: No fractures or dislocations are seen. The pubic symphysis is unremarkable. No bone destruction or erosion is seen. XR/XR coccyx 2V [id number] Impression: Negative sacrum and coccyx.
--- NOTE | 2025-08-14 10:13 | XR_ITS ---
WS: [id number] Left knee, 3 views, 08/14/2025 Clinical Data: left knee pain Comparison: None. Findings: No fractures or dislocations are seen. The joint spaces are normal. The patella is intact. The soft tissues are unremarkable. XR/XR knee LT 3V* [id number] Impression: Negative left knee.
--- NOTE | 2025-08-14 10:13 | XR_ITS ---
WS: [id number] Right knee, 3 views, 08/14/2025 Clinical Data: right knee pain Comparison: None. Findings: No fractures or dislocations are seen. The joint spaces are normal. The patella shows a small anterior superior spur. The soft tissues are unremarkable. XR/XR knee RT 3V* [id number] Impression: Negative right knee.
== END 2025-08-14 10:07 | disposition home or self-care (01) ==
LOC: RAD 10:09
PROVIDERS: PCP Family Medicine; Visit Provider Family Medicine
DX: M25.561 Pain in right knee (principal); M25.562 Pain in left knee; M53.3 Sacrococcygeal disorders, not elsewhere classified; M25.761 Osteophyte, right knee
CPT/HCPCS: 72220; 73562